=== PATIENT | female | born 1990 | race Caucasian/White ===

== ENCOUNTER 2017-02-13 11:28 | Emergency (ER) | payer MEDICAID ==
[~2017-02-13] VITALS: Ht 162.6 cm; Wt 103.9 kg
[2017-02-13 12:49] VITALS: BP 108/49
== END 2017-02-13 12:49 | disposition home or self-care (01) ==
LOC: ED 11:28
DX: N10 Acute pyelonephritis (principal); R73.9 Hyperglycemia, unspecified; F15.90 Other stimulant use, unspecified, uncomplicated; F12.90 Cannabis use, unspecified, uncomplicated; Z79.899 Other long term (current) drug therapy
CPT/HCPCS: 82962; J0696